=== PATIENT | male | born 1990 | race Two or more races ===

== ENCOUNTER 2018-01-05 16:56 | Emergency (ER) | payer SELFPAY ==
[2018-01-05 17:00] VITALS: BP 160/74; BMI 38.7
--- NOTE | 2018-01-05 18:19 | DR.MBACK ---
HPI - Time Seen Time seen: 18:20 - PCP Primary Care Physician: NETO - HPI Comment HPI Comment: PAIN WORSE TODAY. MED TAKEN AT HOME DID NOT HELP. DRIVE FORKLIFT ALL DAY. - Complaint Chief Complaint Doctors Comments: INCREASING LEFT LOWER BACK PAIN AND SWELLING TIMES ONE WEEK. LOT OF TENSENESS IN MUSCLE IN LT LOWER BACK. NO TRAUMA. 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 PT. HAS TRIED TAKING A MUSLCE RELAXER BUT GOT NO RELIEF. - Reviewed Nurses Notes Review: Yes - Source History Provided: Patient - Mode of Arrival Mode of Arrival: Ambulatory - Timing Onset of Chief Complaint: 12/31/17 - Duration Duration: Constant Duration: Days - Location Back Pain Location: Lower Radiation To: Left - Severity Severity: Moderate - Quality Quality: Aching, Sharp - Context Onset: Spontaneous History of: None - Modifying Factors Worsened By: Twisting - Associated Signs and Symptoms Back Pain Symptoms: None Numbness: None Weakness: None PMH - PMH Past Medical History: No Past Surgical History: Yes Surgical History: Tonsillectomy, Other - Family History History of Family Medical Conditions: No - Social History Does patient currently use any type of tobacco product: Yes Have you used tobacco products in the last 12 months: Yes Type of Tobacco Use: Cigarettes Does any household member use tobacco: No Alcohol Use: None Do you use any recreational Drugs:: No Lives With: Significant Other Lives Where: Home - infectious screening In the last 2 months have you had wt loss of >10#?: NO Have you had fever, night sweats or hemotysis?: No Have you traveled outside the country in the last 6 months?: No Isolation: Standard ROS - Review of Systems Constitutional: No Symptoms Reported Eyes: No Symptoms Reported ENTM: No Symptoms Reported Respiratoy: No Symptoms Reported Cardiovascular: No Symptoms Reported Gastrointestinal/Abdominal: No Symptoms Reported Genitourinary: No Symptoms Reported Neurological: No Symptoms Reported Musculoskeletal: Back Pain, Back Integumentary: No Symptoms Reported Hematologic/Lymphatic: No Symptoms Reported Endocrine: No Symptoms Reported All Other Systems: Reviewed and Negative PE - Vital Signs Vitals: Temperature 98.8 F Pulse Rate 72 Respiratory Rate 17 Blood Pressure 160/74 O2 Sat by Pulse Oximetry 99 - General Limitations: No Limitations General Appearance: Alert - Head Head Exam: Normal Inspection - Eyes Eye exam: Normal Appearance - ENT ENT Exam: Normal External Ear Exam - Chest Chest Inspection: Symmetric Chest Wall Rise - Respiratory Respiratory Exam: Normal Lung Sounds Bilat Respiratory Exam: Bilateral Clear to Auscultation - Cardiovascular Cardiovascular Exam: Regular Rate, Normal Rhythm, Normal Heart Sounds - Abdominal Exam Abdominal Exam: Normal Bowel Sounds, Soft. negative: Tenderness - Rectal Rectal Exam: Deferred - Genitourinary Exam: Male: Deferred Scrotal Exam: Normal: Left - Extremities Extremities Exam: Normal Inspection - Back Back Exam: Paraspinal Tenderness (ON THE LEFT SIDE.) - Neurological Neurological Exam: Alert, Oriented X3 - Psychiatric Psychiatric Exam: Normal Affect, Normal Mood - Skin Skin Exam: Normal Color MDM - Differential Diagnosis Differential Diagnosis: Musculoskeletal Pain, Strain Course - Treatment Treatment: SEE ORDERS. - Education/Counseling Education/Counseling: Patient, Education Educated On: Treatment, Needs for Follow Up ROR - XRAY XRAY Interpreted by: Radiologist XRAY Findings: REPORT DISCUSS WITH PATOIENT. - Diagnosis Discharge Problem: Back pain Qualifiers: Back pain location: low back pain Chronicity: acute Back pain laterality: right Sciatica presence: without sciatica Qualified Code(s): M54.5 - Low back pain - Discharge Plan Disposition: 01 HOME, SELF-CARE Condition: Stable Prescriptions: Cyclobenzaprine HCl [FLEXERIL 10 MG *] 10 mg PO TID PRN #20 tab PRN Reason: Ibuprofen [MOTRIN TAB 800 MG *] 800 mg PO BID PRN #30 tab PRN Reason: Pain/Inflammation - Follow ups/Referrals Follow ups/Referrals: Kevin Harris [STAFF PHYSICIAN] - 2 days [facility],None [Primary Care Provider] - 2 days - Instructions Instructions: Musculoskeletal Pain, Back Pain, Adult, [id number] Additional Instructions: RETURN TO ED IF WORSE.
[2018-01-05] MEDS ORDERED: TORADOL 60 MG VIAL IM ONE (18:30)
[2018-01-05] MEDS ORDERED: NORFLEX INJ IM ONE (18:30)
[2018-01-05] MEDS ORDERED: TORADOL 60 MG VIAL ONE (18:40)
[2018-01-05] MEDS ORDERED: NORFLEX INJ ONE (18:40)
--- NOTE | 2018-01-05 19:13 | RAD ---
HISTORY: Back pain Study: Three-view lumbar spine Comparison: None Findings: Vertebral alignment is normal. There is no spondylolisthesis. There is chronic appearing, mild anteri or wedging involving the T11, T12, and L1 vertebral bodies. No acute compression fracture is visualiz ed. Mild loss of disc space height is evident at the L5-S1 level without significant degenerative end plate sclerosis. There may also be mild facet hypertrophy at the L4-L5 and L5-S1 levels as well. IMPRESSION: 1. Chronic changes as above without acute abnormality identified. Reported By:
== END 2018-01-05 19:37 | disposition home or self-care (01) ==
LOC: ER 17:09
DX: M54.5 Low back pain (principal)
CPT/HCPCS: 72100; 96372; 99282; 99283; J1885; J2360